=== PATIENT | female | born 1970 | race Caucasian/White ===

== ENCOUNTER 2018-01-08 21:02 | Emergency (ER) | payer SELFPAY ==
[~2018-01-08] VITALS: Ht 152.4 cm; Wt 88.0 kg
[2018-01-08 21:22] VITALS: BP 130/79
== END 2018-01-09 00:35 | disposition left against medical advice (07) ==
LOC: ER 21:02
DX: R10.9 Unspecified abdominal pain (principal); Z53.21 Procedure and treatment not carried out due to patient leaving prior to being seen by health care provider